=== PATIENT | male | born 1980 | race Caucasian/White ===

== ENCOUNTER 2016-11-30 12:09 | Emergency (ER) | payer BC ==
--- NOTE | 2016-11-30 13:15 | ER Document Report ---
ED Medical Screen (RME) - General Stated Complaint: LIGHT HEADED/ DIZZY Time seen by provider: 13:06 Mode of Arrival: Ambulatory Information source: Patient Notes: 36 yo smoker normal weight, non hypertensive, non diabetic, unknown lipid profile, no CAD hx. male with psycho affective disorder, bipolar , was sent from [facility] due to getting lightheaded, lost balance and fell sideways and hit head on the floor. He did lose consciousness in attendance by a nurse, she is not here. Similar episode in [place] [address] was negative. Now he has chest tightness on the left 3/5, worse with left arm movement. [place] tender to the left anterior upper chest wall and moving arm backwards. Fam Hx, [place] in 50's - Related Data Allergies/Adverse Reactions: Sulfa (Sulfonamide Antibiotics) Allergy (Verified 11/30/16 13:14)
[2016-11-30 14:01] LABS: ABSOLUTE BASOPHILS # (AUTO) 0.1 10^3/uL (0.0-0.2); ABSOLUTE EOSINOPHILS # (AUTO) 0.2 10^3/uL (0.0-0.6); ABSOLUTE LYMPHOCYTES (AUTO) 2.3 10^3/uL (0.5-4.7); ABSOLUTE MONOCYTES (AUTO) 0.8 10^3/uL (0.1-1.4); ABSOLUTE NEUT (AUTO) 6.3 10^3/uL (1.7-8.2); BASOPHILS % (AUTO) 0.6 % (0-2); EOSINOPHILS % (AUTO) 1.9 % (0-6); HEMATOCRIT 46.4 % (37.9-51.0); HEMOGLOBIN 15.7 g/dL (13.5-17.0); HGB HCT DIFFERENCE 0.7; MEAN CORPUSCULAR HEMOGLOBIN 30.7 pg (27.0-33.4); MEAN CORPUSCULAR HGB CONC 33.9 g/dL (32.0-36.0); MEAN CORPUSCULAR VOLUME 91 fl (80-97); MONOCYTES % (AUTO) 8.5 % (3-13); RED BLOOD COUNT 5.12 10^6/uL (4.35-5.55); RED CELL DISTRIBUTION WIDTH 13.3 % (11.5-14.0); WHITE BLOOD COUNT 9.7 10^3/uL (4.0-10.5)
[2016-11-30 14:24] LABS: ALANINE AMINOTRANSFERASE 107 U/L (21-72); ALBUMIN 4.7 g/dL (3.5-5.0); ALKALINE PHOSPHATASE 87 U/L (38-126); ANION GAP 15 (5-19); ASPARTATE AMINO TRANSFERASE 56 U/L (17-59); BILIRUBIN,DIRECT 0.1 mg/dL (0.0-0.4); BILIRUBIN,TOTAL 0.4 mg/dL (0.2-1.3); BLOOD UREA NITROGEN 12 mg/dL (7-20); CALCIUM 9.8 mg/dL (8.4-10.2); CARBON DIOXIDE 29 mmol/L (22-30); CHLORIDE 103 mmol/L (98-107); CREATINE KINASE 178 U/L (55-170); CREATININE RESULT 0.89 mg/dL (0.52-1.25); GLUCOSE 88 mg/dL (75-110); POTASSIUM 4.4 mmol/L (3.6-5.0); SODIUM 146.7 mmol/L (137-145); TOTAL PROTEIN 7.3 g/dL (6.3-8.2)
[2016-11-30 14:35] LABS: CREATINE KINASE MB 3.29 ng/mL (<4.55)
[2016-11-30 14:43] LABS: TROPONIN I < 0.012 ng/mL
[2016-11-30 16:06] LABS: APPEARANCE,URINE CLEAR; BILIRUBIN,URINE NEGATIVE (NEGATIVE); GLUCOSE, URINE NEGATIVE (NEGATIVE); KETONES,URINE NEGATIVE (NEGATIVE); LEUKOCYTE ESTERASE,URINE NEGATIVE (NEGATIVE); NITRITE,URINE NEGATIVE (NEGATIVE); PROTEIN,URINE NEGATIVE (NEGATIVE); URINE SPECIFIC GRAVITY 1.003; UROBILINOGEN,URINE NEGATIVE mg/dL (<2.0)
[2016-11-30 16:19] LABS: URINE BARBITURATES SCREEN NEGATIVE; URINE METHADONE SCREEN NEGATIVE; URINE OPIATES LOW NEGATIVE; URINE PHENCYCLIDINE SCREEN NEGATIVE
--- NOTE | 2016-11-30 18:21 | EKG REPORT ---
SEVERITY:- NORMAL ECG - SINUS RHYTHM : Confirmed by: Xavi Frank MD 30-Nov-2016 18:20:19
--- NOTE | 2016-11-30 22:16 | ER Document Report ---
ED General - General Chief Complaint: Passed Out Prior to Arrival Stated Complaint: LIGHT HEADED/ DIZZY Mode of Arrival: Ambulatory Notes: Patient is a pleasant 36-year-old male who presents with complaint of a cecal episode. This is his second syncopal episode he has had this month. The first episode occurred when he was getting out of the shower and he passed out. This episode occurred after he has blood pressure taken. He stood up after having his blood pressure taken and then passed out. He is staying at [facility] currently. He says he's been having a midchest pain for some time now however its sometimes worse with deep breaths but also worse if he moves his left arm or moves his torso no way that create some to move his left side. Pain is worse when he pushes over his chest wall. He denies any history of cardiac disease. His grandfathers had heart attacks but they were in their 50s and 60s. No one had a heart attack at young age. He has no cardiac risk factors other than smoking. He denies recent fevers or infections. He did not have increasing chest pain just before or after the cecal episode. He did not have a headache before after the syncopal episode. He currently feels well and has no further complaints. He denies recent leg pain or leg swelling. No history of DVT or PE. TRAVEL OUTSIDE OF THE [place] IN LAST 30 DAYS: No - Related Data Allergies/Adverse Reactions: Sulfa (Sulfonamide Antibiotics) Allergy (Verified 11/30/16 13:14) Past Medical History - General Information source: Patient - Social History Smoking Status: Current Every Day Smoker Frequency of alcohol use: None Drug Abuse: None Family History: Reviewed & Not Pertinent Patient has suicidal ideation: No Renal/ Medical History: Denies: Hx Peritoneal Dialysis Review of Systems - Review of Systems Notes: My Normal Review Basic REVIEW OF SYSTEMS: CONSTITUTIONAL : Denies fever, chills, or sweats. Denies recent illness. EENT: Denies eye, ear, throat, or mouth pain or symptoms. Denies nasal or sinus congestion. CARDIOVASCULAR: Some chest pain. RESPIRATORY: Denies cough, cold, or chest congestion. Denies shortness of breath, difficulty breathing, or wheezing. GASTROINTESTINAL: Denies abdominal pain. Denies nausea, vomiting, or diarrhea. Denies constipation. Last BM: MUSCULOSKELETAL: Denies neck or back pain or joint pain or swelling. SKIN: Denies rash or skin lesions. HEMATOLOGIC : Denies easy bruising or bleeding. LYMPHATIC: Denies swollen, enlarged glands. NEUROLOGICAL: Equal episode. Denies headache. Denies weakness or paralysis or loss of use of either side. Denies problems with gait or speech. Denies sensory or motor loss. PSYCHIATRIC: History of depression and anxiety ALL OTHER SYSTEMS REVIEWED AND NEGATIVE. Physical Exam - Vital signs Vitals: Temp 97.9 F 11/30/16 13:04 - Notes Notes: General Appearance: Well nourished, alert, cooperative, no acute distress, no obvious discomfort. Vitals: reviewed, See vital signs table. Head: no swelling or tenderness to the head Eyes: PERRL, EOMI, Conjuctiva clear Mouth: No decreasd moisture Neck: Supple, no neck tenderness, No thyromegaly Lungs: No wheezing, No rales, No rhonci, No accessory muscle use, good air exchange bilaterally. Heart: Normal rate, Regular rythm, No murmur, no rub Abdomen: Normal BS, soft, No rigidity, No abdominal tenderness, No guarding, no rebound, no abdominal masses, no organomegaly Extremities: strength 5/5 in all extremities, good pulses in all extremities, no swelling or tenderness in the extremities, no edema. Skin: warm, dry, appropriate color, no rash Neuro: speech clear, oriented x 3, normal affect, responds appropriately to questions. Cranial nerves II through XII are intact. Distal sensation intact. Patient moves all extremities without difficulty. Course - Vital Signs Vital signs: Temp Pulse Resp BP Pulse Ox 97.9 F 91 141/98 H 98 11/30/16 13:09 11/30/16 13:09 11/30/16 13:09 11/30/16 13:09 - Laboratory Result Diagrams: 11/30/16 13:25 11/30/16 13:25 Laboratory results interpreted by me: 11/30/16 11/30/16 13:25 22:53 D-Dimer 0.58 H Sodium 146.7 H ALT 107 H Creatine Kinase 178 H - EKG Interpretation by Me Additional EKG results interpreted by me: 11/30/16 22:15 EKG is reviewed and interpreted by me. EKG shows normal sinus rhythm with rate of [address] segment elevation or depression. No ischemic T wave inversions. KS interval, QRS duration, QTC intervals are within normal range. No old EKG available for comparison. - Transfer of Care Notes: 12/01/16 01:04 Patient is a very well. He has no neurologic deficits on exam. His syncopal episode occurred after standing up the clear after having his blood pressure taking. This may be an orthostatic episode. I did obtain a D-dimer test because the patient had been having some pleuritic-type chest pain. I suspect pleuritic-type pain is mostly muscle skeletal on that it is easily reproducible palpation. His vital signs are normal. D-dimer was ordered because she is low risk. D-dimer did come back positive and CT was ordered which was negative. His CT scan of his head was obtained triage. Is negative. He otherwise looks well. Is up-to-date evaluations otherwise unremarkable. I feel he is safe to be discharged home. I will refer him to transmission rebuilder for further workup of syncope such as possible tilt table testing and/or echo if they feel it is necessary upon their evaluation. I do not see any evidence of any emergent cause of his syncopal episodes at this time and I do not feel he requires admission. Dictation of this chart was performed using voice recognition software; therefore, there may be some unintended grammatical errors. Discharge - Discharge Clinical Impression: Syncope Qualifiers: Syncope type: unspecified Qualified Code(s): R55 - Syncope and collapse Condition: Good Disposition: HOME, SELF-CARE Additional Instructions: SYNCOPAL EPISODE: Syncope (fainting or near-fainting) can occur from many different health problems. Or it can be a simple fainting spell requiring no treatment. It is safe for you to go home, but further evaluation will likely be necessary. Your work-up may include tests for internal bleeding, heart disease, medication problems, or near-strokes. Tests are not always required, however, depending on the nature of your problem. The warning signs of an impending faint include: dizziness, lightheadedness , nausea, hot flashes, tingling, and weakness. If this happens, lay down and put your feet up, then wait until all of these symptoms have passed before standing up again. If these episodes become recurrent, or if you develop chest pain, heart palpitations, mental confusion, blurred vision, or headache, then you should call the physician, or go to the emergency room. NORMAL EXAM AND WORKUP: At this time, your examination and workup show no significant abnormality. No significant abnormal physical findings were noted. All laboratory, EKG, and imaging (x-ray, CT scans, ultrasound) studies that were ordered show no significant abnormality. Although your examination and all studies that were ordered showed no significant abnormal finding, there are no examinations and no studies that are 100% accurate. There is always the possibility that some abnormality could exist and not be detected with physical examination or within the limits and capabilities of laboratory and other studies. You should return or follow up as you were instructed on your visit today for further evaluation if your symptoms do not resolve. FOLLOW-UP CARE: If you have been referred to a physician for follow-up care, call the physician s office for an appointment as you were instructed or within the next two days. If you experience worsening or a significant change in your symptoms, notify the physician immediately or return to the Emergency Department at any time for re-evaluation. Please take your time when you stand. Do not stand up quickly or it may make you dizzy. Please follow up with the transmission rebuilder, Dr. Ponce, for further evaluation as they may do further testing to help determine the cause of your passing out episodes. Referrals: JALIL PONCE MD [ACTIVE STAFF] - Follow up in 3-5 days
[2016-11-30] MEDS ORDERED: NORMAL SALINE 1000 ML 1,000 ML IV ONE (23:38)
[2016-12-01 01:53] VITALS: BP 129/85
== END 2016-12-01 01:30 | disposition home or self-care (01) ==
LOC: ER 12:09
DX: R55 Syncope and collapse (principal); R07.81 Pleurodynia; F17.200 Nicotine dependence, unspecified, uncomplicated; Z82.49 Family history of ischemic heart disease and other diseases of the circulatory system; Z88.2 Allergy status to sulfonamides
CPT/HCPCS: 93005; 99284; 36415; 82553; 82550; 85025; 80053; 81001; 84484; 80307; 85379; 71101; 70450; 71275; 93010; J7030